=== PATIENT | female | born 1975 | race Caucasian/White ===

== ENCOUNTER 2016-12-05 15:33 | Emergency (ER) | payer OTHER ==
[2016-12-05 15:41] VITALS: BP 144/83
--- NOTE | 2016-12-05 15:56 | UC ---
Lower Extremity/Ankle HPI - HPI Summary HPI Summary: Patient presents s/p left ankle injury that occurred when she stepped off the curb. She has since developed left lateral and dorsal foot pain. The pain is worse when she plantar or dorsal flex the foot, or with weigh bearing activity. She denies any numbness, or tingling of the foot or ankle. She denies any other leg injury or pain. - History of Current Complaint Chief Complaint: UCLowerExtremity Stated Complaint: ANKLE INJURY Time Seen by Provider: 12/05/16 15:39 Hx Obtained From: Patient Hx Last Menstrual Period: 2000 ?: No Onset/Duration: Sudden Onset Severity Initially: Moderate Severity Currently: Moderate Aggravating Factor(s): Ambulation Alleviating Factor(s): Rest, Elevation, Ice, OTC Meds, Other - ariana wrap - Risk Factors Gout Risk Factors: Negative DVT Risk Factors: Negative Septic Arthritis Risk Factor: Negative - Allergies/Home Medications Allergies/Adverse Reactions: Allergies Allergy/AdvReac Type Severity Reaction Status Date / Time No Known Allergies Allergy Verified 12/05/16 15:40 PMH/Surg Hx/FS Hx/Imm Hx Previously Healthy: Yes Other History Of: Negative For: Anticoagulant Therapy - Surgical History Surgical History: Yes Surgery Procedure, Year, and Place: left wrist. right ankle - Family History Known Family History: Positive: None - Social History Occupation: Employed Full-time Lives: Alone Alcohol Use: Occasionally Substance Use Type: None Smoking Status (MU): Current Every Day Smoker Type: Cigarettes Amount Used/How Often: 1/2 PPD Review of Systems Constitutional: Negative Skin: Negative Eyes: Negative ENT: Negative, Dental Pain Respiratory: Negative Cardiovascular: Negative Musculoskeletal: Other: - left foot and ankle pain All Other Systems Reviewed And Are Negative: Yes Physical Exam Triage Information Reviewed: Yes Appearance: Well-Appearing Vital Signs: Initial Vital Signs Temp 98.1 F 12/05/16 15:35 Pulse 110 12/05/16 15:35 Resp 18 12/05/16 15:35 BP 144/83 12/05/16 15:35 Pulse Ox 99 12/05/16 15:35 Vital Signs Reviewed: Yes Eye Exam: Normal ENT Exam: Normal Neck exam: Normal Respiratory Exam: Normal Musculoskeletal: Positive: Strength Limited @, ROM Limited @, Edema @ - left lateral ankle and foot., Other: - left ankle: inspection: soft tissue swelling and bruising noted over the lateral malleoulus and lateral aspect of the foot. rom:intact with full dorsal flextion and plantar flexion. vasc: PP+, neuro no deficits. Lower Extremity Course/Dx - Course Course Of Treatment: Patient presents s/p twisting of left foot and ankle. She has soft tissue swelling and brusing. X-rays were negative. Patient was neurovascularly intact. She was placed in an ariana wrap, gel splint and declined crutches. I recommend she take Ibuprophen 400 mg by mouth every six hours as needed for pain. If her symptoms worsen or pesisit more that 1 week she is to call the orthopedist for follow up, and possibly reimaging. - Differential Dx/Diagnosis Provider Diagnoses: sprain ankle. sprain foot Discharge - Discharge Plan Condition: Stable Disposition: HOME Patient Education Materials: Ankle Sprain (ED), Ankle Stirrup Splint (ED) Referrals: Shantanu Galvez MD [Medical Doctor] - Bonnie Henriquez MD [Primary Care Provider] - Images Feet (Multiple View): 1 - area of bruising and swelling
--- NOTE | 2016-12-05 16:23 | RAD ---
Indication: Pain following rolling injury 1 day ago. Anterior and lateral pain. Comparison: August 02, 2013 Technique: AP, mortise, and lateral views LEFT ankle. Report: Negative for fracture or malalignment. No suggestion of talocrural joint effusion. Mild soft tissue swelling over the lateral malleolus. Minimal Achilles tendon insertion bone spur. IMPRESSION: Mild lateral soft tissue swelling. Negative for fracture or malalignment.
== END 2016-12-05 16:35 | disposition home or self-care (01) ==
LOC: UCEAST 15:33
DX: S93.402A Sprain of unspecified ligament of left ankle, initial encounter (principal); S93.602A Unspecified sprain of left foot, initial encounter; X50.0XXA Overexertion from strenuous movement or load, initial encounter; Y93.01 Activity, walking, marching and hiking; Y92.9 Unspecified place or not applicable; Y99.9 Unspecified external cause status; Z72.0 Tobacco use
CPT/HCPCS: 99212; G0463